=== PATIENT | female | born 1990 | race African-American/Black ===

== ENCOUNTER 2020-12-07 09:30 | Outpatient (CLI) | payer BC | END 2020-12-07 09:31 | disposition home or self-care (01) | LOC: BICMAMMO 09:30 | PROVIDERS: ATTEND Nurse Practitioner Family | DX: Z12.31 Encounter for screening mammogram for malignant neoplasm of breast (principal); G54.9 Nerve root and plexus disorder, unspecified; G62.9 Polyneuropathy, unspecified; Z80.3 Family history of malignant neoplasm of breast | CPT/HCPCS: 72040; 72072; 72100; 77063; 77067 ==

== ENCOUNTER 2024-03-20 04:07 | Emergency (ER) | payer BC, OTHER ==
[2024-03-20] MEDS ORDERED: Boostrix 0.5 ML (Tdap) VIAL (>/=7 yrs of age) ONE (04:36)
[2024-03-20 04:47] LABS: #Basophils 0.05 10x3/uL (0.0-0.2); #Eosinophils Less than 0.03 10x3/uL (0.0-0.7); %Basophils 0.6 % (0.0-1.0); %Eosinophils 0.2 % (0.0-10.0); %Lymphocytes 26.1 % (21.0-51.0); %Monocytes 6.8 % (0.0-10.0); %Neutrophils 64.9 % (42.0-75.0); Hematocrit 37.9 % (36.0-47.0); Hemoglobin 13.6 g/dL (12.0-16.0); Mean Corpuscular HGB CONC 35.9 g/dL (32.0-36.0); Mean Corpuscular Hemoglobin 31.9 pg (27.0-31.0); Mean Corpuscular Volume 88.8 fL (78.0-98.0); Mean Platelet Volume 9.1 fL (7.4-10.4); Platelet Count 407 10x3/uL (130-400); RBC Distribution Width 12.9 % (11.5-14.5); Red Blood Cell (RBC) Count 4.27 mill/uL (4.20-5.40)
[2024-03-20 05:02] LABS: Alcohol Less than 10.0 mg/dL (Less than 10)
[2024-03-20 05:05] LABS: ALT (SGPT) 14 U/L (8-55); AST (SGOT) 27 U/L (5-34); Albumin 4.1 g/dL (3.5-5.0); Alkaline Phosphatase 56 U/L (40-110); Anion Gap 15 mmol/L (10-20); BUN (Urea Nitrogen) 6 mg/dL (7.0-18.7); Bilirubin, Total 0.5 mg/dL (0.2-1.2); Calc. Creatinine Clearance 0 mL/min (70-130); Calcium 8.7 mg/dL (7.8-10.44); Carbon Dioxide 21 mmol/L (22-29); Chloride 106 mmol/L (98-107); Estimated GFR 99; Glucose 118 mg/dL (70-105); Lipase 59 U/L (8-78); Potassium 3.3 mmol/L (3.5-5.1); Protein, Total 8.1 g/dL (6.0-8.3); Sodium 139 mmol/L (136-145)
[2024-03-20] MEDS ORDERED: Morphine 4 MG/ML VIAL ONE ×2 (05:07→08:54)
[2024-03-20] MEDS ORDERED: Ondansetron PF 4 MG/2 ML Vial ONE (05:07)
[2024-03-20] MEDS ORDERED: Bacitracin 1 PK ONE (08:26)
[2024-03-20] MEDS ORDERED: Iopamidol 370 76% 100 ML VIAL ONE (10:24)
== END 2024-03-20 09:08 | disposition home or self-care (01) ==
LOC: ERS 04:07
DX: S22.088A Other fracture of T11-T12 vertebra, initial encounter for closed fracture (principal); S01.112A Laceration without foreign body of left eyelid and periocular area, initial encounter; Z23 Encounter for immunization; V44.5XXA Car driver injured in collision with heavy transport vehicle or bus in traffic accident, initial encounter; Y93.89 Activity, other specified
CPT/HCPCS: 70450; 71260; 72125; 74177; 80053; 80307; 83690; 85025; 86850; 86900; 86901; 90471; 90715; 93005; 94760; 96374; 96375; G0390; J2272; J2405